=== PATIENT | female | born 1980 | race Caucasian/White ===

== ENCOUNTER 2019-09-12 16:30 | Inpatient (IN) | payer OTHER ==
[2019-09-12] MEDS ORDERED: DINOPROSTONE 10 MG VAGINAL SUPPOSITORY VG ONE (17:45)
[2019-09-12] MEDS ORDERED: PROMETHAZINE HCL 25 MG/1 ML VIAL IVPUSH ONE (17:45)
[2019-09-12] MEDS ORDERED: BUTORPHANOL TARTRATE 1 MG/ML VIAL IVPUSH ONE (17:45)
--- NOTE | 2019-09-12 17:45 | HP ---
Past Medical History - Primary Care Physician PCP:: Dov Leon - Admission Chief Complaint: 39 weeks, PROM, AMA History of Present Illness: 39 yo f G 4 p3 0 0 3 , 39 weeks , c/o rom ,clear fluid since 5 pm, no pain, no fever, cx closed 25 precent effaced , vx -3 mr, nitrazine positive , GBS negative History Source: Patient Limitations to Obtaining History: No Limitations - Past Medical History Cardiovascular: No: AFIB, Aneurysm, Aortic Insufficiency, Aortic Stenosis, CAD, CHF, Deep Vein Thrombosis, HTN, Hyperlipdemia, IA, Mitral Insufficiency, Mitral Stenosis, Murmur, Pulmonary Hypertension, Other Renal/: No: Renal Failure, Renal Inusuff, BPH, Cancer, Hematuria, Hemodialysis , Neurogenic Bladder, Renal Calculi, UTI, Other ...: 4 ...Para: 3 ...Term: 3 Heme/Onc: Yes: Anemia - Past Surgical History Hx Myomectomy: No Hx Transabdominal Cerclage: No - Smoking History Smoking history: Never smoked - Alcohol/Substance Use Hx Alcohol Use: No - Social History Usual Living Arrangement: Yes: With Spouse History of Recent Travel: No Home Medications - Allergies Allergies/Adverse Reactions: Allergies Allergy/AdvReac Type Severity Reaction Status Date / Time No Known Drug Allergies Allergy Verified 09/12/19 17:47 - Home Medications Home Medications: Ambulatory Orders Vitamins (Sjr) - 1 tab PO DAILY 09/12/19 Review of Systems - Review of Systems Constitutional: reports: No Symptoms Eyes: reports: No Symptoms HENT: reports: No Symptoms Neck: reports: No Symptoms Cardiovascular: reports: No Symptoms Respiratory: reports: No Symptoms Gastrointestinal: reports: No Symptoms Genitourinary: reports: No Symptoms Breasts: reports: No Symptoms Reported Musculoskeletal: reports: No Symptoms Integumentary: reports: No Symptoms Neurological: reports: No Symptoms Endocrine: reports: No Symptoms Psychiatric: reports: No Symptoms Physical Exam - Maternity Constitutional: Yes: Well Nourished, No Distress, Calm Eyes: Yes: WNL, Conjunctiva Clear, EOM Intact HENT: Yes: WNL, Atraumatic, Normocephalic Neck: Yes: WNL, Supple, Trachea Midline Cardiovascular: Yes: WNL, Regular Rate and Rhythm Breast(s): Yes: WNL - Abdominal Exam/OB Fundal Height: 40 Number of Fetuses: Single Presentation: Vertex Contractions: No Intensity: Unaware Monitor Mode: External Heart Rate Location: [facility] Category: I Accelerations: Non-Uniform Decelerations: None - Vaginal Exam/OB Vaginal Bleediing: No Speculum Exam: Yes Dilatation (cm): closed Effacement (%): 0 Amniotic Membrane Status: Ruptured Nitrazine Test: Positive Amniotic Fluid: Yes: Clear Presentation: Vertex/Position Station: -3 - Physical Exam Musculoskeletal: Yes: WNL Extremities: Yes: WNL Edema: LLE: Trace, RLE: Trace ...Motor Strength: WNL Psychiatric: Yes: WNL Hemorrhage Risk Assessment - Risk Factors Medium Risk Factors: Yes: None High Risk Factors: Yes: None Risk Score: 1 Risk Level: Medium Risk Problem List - Problems (1) 39 weeks gestation of Code(s): Z3A.39 - 39 WEEKS GESTATION OF (2) Premature labor with rupture of membranes in third trimester Code(s): O42.913 - PRETRM BELINDA ROM, UNSP TIME BETW RUPT AND ONST LABR, 3RD TRI Assessment/Plan admit FHM cervidil discussed , risks and ulternatives explained agreed to have cervidil
--- NOTE | 2019-09-12 17:49 | PN ---
Progress Note (short form) - Note Progress Note: cx closed , 25 ,vx -3 mr, clear , fhr cat 1 cervidil risks and benefit discusssed cervidil inserted
[2019-09-12] MEDS ORDERED: DEXTROSE 5%-LACTATED RINGERS 1,000 ML IV SCH (18:00)
[2019-09-12 18:16] VITALS: BMI 30.1
[2019-09-12 19:51] LABS: BASO % 0.3 % (0-2.0); EOS % 0.4 % (0-4.5); HEMATOCRIT 35.8 % (32.4-45.2); HEMOGLOBIN 11.6 GM/dL (10.7-15.3); LYMPH % 14.5 % (8-40); MCH 25.1 pg (25.7-33.7); MCHC 32.5 g/dl (32.0-36.0); MEAN CELL VOLUME 77.1 fl (80-96); MEAN PLT VOLUME 9.9 fl (7.5-11.1); MONO % 4.5 % (3.8-10.2); NEUT % 80.3 % (42.8-82.8); PLATELET COUNT 145 K/MM3 (134-434); RBC 4.64 M/mm3 (3.60-5.2); RDW 16.2 % (11.6-15.6); WHITE BLOOD COUNT 8.4 K/mm3 (4.0-10.0)
[2019-09-12 20:12] LABS: INR 0.92 (0.83-1.09); PROTHROMBIN TIME (PATIENT) 10.9 SEC (9.7-13.0)
[2019-09-12 20:14] LABS: ACTIVATED PTT 26.1 SECONDS (25.2-36.5); BLOOD UREA NITROGEN 10.3 mg/dL (7-18); CALCIUM 7.9 mg/dL (8.5-10.1); CREATININE 0.8 mg/dL (0.55-1.3); POTASSIUM 3.9 mmol/L (3.5-5.1)
[2019-09-12] MEDS ORDERED: ELECTROLYTE-148 SOLN 1,000 ML IV SCH (20:45)
[2019-09-12] MEDS ORDERED: NALOXONE HCL 0.4 MG/ML VIAL IVPUSH PRN (20:49)
[2019-09-12] MEDS ORDERED: FENTANYL/BUPIVACAINE/NS/PF - PCEA - 50 ML DISP.SYRIN EP ONE (20:55)
[2019-09-12] MEDS ORDERED: FENTANYL/BUPIVACAINE/NS/PF - PCEA - 50 ML DISP.SYRIN EP SCH (21:00)
[2019-09-12] MEDS ORDERED: PROMETHAZINE HCL 25 MG/1 ML VIAL ONE (21:27)
[2019-09-12] MEDS ORDERED: BUTORPHANOL TARTRATE 1 MG/ML VIAL ONE ×2 (21:27)
[2019-09-12] MEDS ORDERED: LIDOCAINE HCL 1% PRESERVATIVE FREE - 30ML VIAL ONE (23:54)
[2019-09-12] MEDS ORDERED: OXYTOCIN 20 UNITS in 0.9% NS 20 UNIT/1,000 ML INFUS.BAG IV ONE (23:55)
[2019-09-13] MEDS ORDERED: METHYLERGONOVINE MALEATE 0.2 MG/1 ML AMP IM PRN (00:31)
[2019-09-13] MEDS ORDERED: oxyCODONE HCL 5 MG TABLET PO PRN (00:31)
[2019-09-13] MEDS ORDERED: WITCH HAZEL 50% (TUCKS) 40 PAD/JAR PAD TP PRN (00:31)
[2019-09-13] MEDS ORDERED: BENZOCAINE 28 GM HEMORRHOIDAL OINTMENT TP PRN (00:31)
[2019-09-13] MEDS ORDERED: BENZOCAINE 20% 57 GM BOTTLE TP PRN (00:31)
[2019-09-13] MEDS ORDERED: BISACODYL 10 MG SUPP.RECT RC PRN (00:31)
--- NOTE | 2019-09-13 00:35 | PN ---
Progress Note (short form) - Note Progress Note: 11 pm 8 cm , nst reactive, uc q 3 min, took stadol, comfortable, -1, 90 %
--- NOTE | 2019-09-13 00:37 | PN ---
Progress Note (short form) - Note Progress Note: 11 50 pm, 9 cm, pushing soon, nst reactive, uc q 3 min,
--- NOTE | 2019-09-13 00:38 | PN ---
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
[2019-09-13] MEDS ORDERED: OXYTOCIN 20 UNITS in 0.9% NS 20 UNIT/1,000 ML INFUS.BAG IV SCH (00:45)
[2019-09-13] MEDS ORDERED: OXYTOCIN 20 UNITS in 0.9% NS 20 UNIT/1,000 ML INFUS.BAG IV ONE (02:26)
[2019-09-13] MEDS ORDERED: ACETAMINOPHEN 325 MG TABLET (FP) ONE (05:43)
[2019-09-13] MEDS ORDERED: IBUPROFEN 600 MG TABLET (FP) PO ONE (05:43)
[2019-09-13] MEDS: IBUPROFEN 600 MG TABLET (FP) PO PRN ×2 (05:51→14:35)
[2019-09-13] MEDS: ACETAMINOPHEN 325 MG TABLET (FP) PO PRN ×2 (05:52→14:35)
--- NOTE | 2019-09-13 18:46 | PN ---
Progress Note (short form) - Note Progress Note: ppd 1, no c/o . no excess vaginal bleeding CBC, BMP 09/12/19 19:10 09/12/19 19:10 Last Vital Signs Temp Pulse Resp BP Pulse Ox 97.6 F 74 18 101/60 100 09/13/19 14:15 09/13/19 14:15 09/13/19 14:15 09/13/19 14:15 09/13/19 01:30 abdomen soft, no distension, no cva uterus firm, non tender lochia mild no calf tenderness plan ambulate . cbc in am Problem List - Problems (1) 39 weeks gestation of Code(s): Z3A.39 - 39 WEEKS GESTATION OF (2) Premature labor with rupture of membranes in third trimester Code(s): O42.913 - PRETRM BELINDA ROM, UNSP TIME BETW RUPT AND ONST LABR, 3RD TRI
[2019-09-14] MEDS: ACETAMINOPHEN 325 MG TABLET (FP) PO PRN (03:25)
[2019-09-14] MEDS: IBUPROFEN 600 MG TABLET (FP) PO PRN (03:28)
--- NOTE | 2019-09-14 09:14 | DS ---
Physical Exam-LOG FEEDER Vital Signs: Vital Signs Temperature 98 F 09/13/19 22:00 Pulse Rate 73 09/13/19 22:00 Respiratory Rate 18 09/13/19 22:00 Blood Pressure 118/72 09/13/19 22:00 O2 Sat by Pulse Oximetry (%) 100 09/13/19 01:30 Constitutional: Yes: Well Nourished, No Distress, Calm Eyes: Yes: WNL HENT: Yes: WNL, Atraumatic, Normocephalic Neck: Yes: WNL, Supple, Trachea Midline Cardiovascular: Yes: WNL, Regular Rate and Rhythm Respiratory: Yes: WNL Gastrointestinal: Yes: WNL ...Rectal Exam: Yes: WNL Renal/: Yes: WNL ....Post : Yes: Uterus firm, Uterus non-tender, Slight lochia rubra Breast(s): Yes: WNL Musculoskeletal: Yes: WNL Extremities: Yes: WNL Edema: No Integumentary: Yes: WNL Neurological: Yes: WNL, Alert, Oriented ...Motor Strength: WNL Psychiatric: Yes: WNL, Alert, Oriented Labs: CBC, BMP 09/12/19 19:10 09/12/19 19:10 Delivery - Delivery Vaginal Delivery: No Problems Type of Anesthesia: Local Episiotomy/Laceration: Right Mediolateral EBL (cc): 300 Delivery, Single - Stages of Labor Date 1st Stage Initiatied: 09/12/19 Time 1st Stage Initiated: 15:30 Date 2nd Stage Initiated: 09/12/19 Time 2nd Stage Initiated: 23:55 Date of Delivery: 09/12/19 Time of Delivery: 00:09 Time Placenta Delivered: 00:11 Placenta: Yes: Spontaneous - 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 Gender: Male Weight: 7 lb 7 oz Position: Left, OA Total Hours ROM (Hrs/Mins): 8h 38m - 1 Minute Total Score: 9 5 Minutes Total Score: 9 - [place] Feeding Plan Initial Plan: Elected not to breastfeed exclusively throughout hospitalization Discharge Summary Problems reviewed: Yes Reason For Visit: LABOR Current Active Problems 39 weeks gestation of (Acute) Premature labor with rupture of membranes in third trimester (Acute) Procedures: Principal: Other Procedures: RML episiotomy Hospital Course: no complication Health Concerns: obesity Plan of Treatment: low carb diet , exercise Condition: Good - Instructions Diet, Activity, Other Instructions: regular diet , no intercourse , if pain, heavy vaginal bleeding call md follow up [facility] care 4 weeks Referrals: Dov Leon MD [Staff Physician] - Disposition: HOME - Home Medications Comprehensive Discharge Medication List: Ambulatory Orders Vitamins (Sjr) - 1 tab PO DAILY 09/12/19 Ibuprofen [Motrin -] 600 mg PO TID #21 tablet 09/13/19
[2019-09-14] MEDS ORDERED: DIPHTH,PERTUSS(ACELL),TET 0.5 ML DISP.SYRIN IM ONE (10:00)
[2019-09-14 10:01] LABS: BASO % 0.3 % (0-2.0); EOS % 1.7 % (0-4.5); HEMOGLOBIN 10.4 GM/dL (10.7-15.3); LYMPH % 14.4 % (8-40); MCH 25.3 pg (25.7-33.7); MCHC 32.6 g/dl (32.0-36.0); MEAN CELL VOLUME 77.5 fl (80-96); MEAN PLT VOLUME 9.8 fl (7.5-11.1); MONO % 3.3 % (3.8-10.2); NEUT % 80.3 % (42.8-82.8); PLATELET COUNT 134 K/MM3 (134-434); RBC 4.13 M/mm3 (3.60-5.2); RDW 16.4 % (11.6-15.6); WHITE BLOOD COUNT 8.9 K/mm3 (4.0-10.0)
[2019-09-14 10:19] VITALS: BP 105/68; PULSE 85; TEMP 97.9
[2019-09-14 10:51] LABS: POC NITRAZINE POS
[2019-09-14] MEDS ORDERED: SENNOSIDES/DOCUSATE COMBO (SENNA PLUS) TABLET (UD) PO PRN (22:00)
== END 2019-09-14 13:30 | disposition home or self-care (01) | DRG 560 ==
LOC: JDEL 16:30 → JLDR 16:31 → J3W 09-13 14:10
PROVIDERS: ADMIT Obstetrics & Gynecology; ATTEND Obstetrics & Gynecology
PROC: 0W8NXZZ Division of Female Perineum, External Approach (ICD-10-PCS; principal; 2019-09-12)
PROC: 10E0XZZ Delivery of Products of Conception, External Approach (ICD-10-PCS; 2019-09-12)
DX: O42.92 Full-term premature rupture of membranes, unspecified as to length of time between rupture and onset of labor (principal); Z3A.39 39 weeks gestation of pregnancy; Z37.0 Single live birth
CPT/HCPCS: 36415; 59409; 76000-TC-FY; 80048; 83986-QW; 85025; 85610; 85730; 86593; 86850; 86900; 86901; 90715

== ENCOUNTER 2019-10-17 04:48 | Day surgery (SDC) | payer OTHER ==
[2019-10-16 10:22] VITALS: BMI 24.4
[2019-10-17] MEDS ORDERED: BUPIVACAINE HCL/PF 0.25% (2.5MG/ML) 10 ML VIAL ONE (07:14)
--- NOTE | 2019-10-17 08:16 | HP ---
Admitting History and Physical - Admission History of Present Illness: 39yo here for sterilization Declined LARCs. History of 4 NSVDs, last Sep 2019 Limitations to Obtaining History: Language Barrier - Past Medical History ACCOUNT ASSOCIATE: No: Alzheimer's, CVA, Dementia, Migraine, Multiple Sclerosis, Peripheral Neuropathy, Parkinson's, Seizure, Syncope, TIA, Vertigo, Other Cardiovascular: No: AFIB, Aneurysm, Aortic Insufficiency, Aortic Stenosis, CAD, CHF, Deep Vein Thrombosis, HTN, Hyperlipdemia, RI, Mitral Insufficiency, Mitral Stenosis, Murmur, Pulmonary Hypertension, Other Pulmonary: No: Asthma, Bronchitis, Cancer, COPD, O2 Dependent, Pneumonia, Previously Intubated, Pulmonary Embolus, Pulmonary Fibrosis, Sleep Apnea, Other Gastrointestinal: No: Ascites, Cancer, Constipation, Crohn's Disease, Diverticulitis, Diverticulosis, Esophageal Varices, Gastritis, GERD, GI Bleed, Hemorrhoids, Hiatal Hernia, Inflamatory Bowel Disease, Irritable Bowel Disease, Pancreatitis, Peptic Ulcer Disease, Ulcerative Colitis, Other ...LMP: 10/06/19 Heme/Onc: Yes: Anemia - Smoking History Smoking history: Never smoked Have you smoked in the past 12 months: No - Alcohol/Substance Use Hx Alcohol Use: No - Social History History of Recent Travel: No Home Medications - Allergies Allergies/Adverse Reactions: Allergies Allergy/AdvReac Type Severity Reaction Status Date / Time No Known Drug Allergies Allergy Verified 10/16/19 10:22 - Home Medications Home Medications: Ambulatory Orders NK [No Known Home Medication] 10/16/19 Review of Systems - Review of Systems Constitutional: denies: No Symptoms, Chills, Diaphoresis, Fever, Lethargy, Loss of Appetite, Malaise, Night Sweats, Unintentional Wgt. Loss, Weakness, Other Cardiovascular: denies: No Symptoms, Chest Pain, Edema, Palpitations, Shortness of Breath, Other Physical Examination Vital Signs: Vital Signs Temperature 98.4 F 10/17/19 06:56 Pulse Rate 80 10/17/19 06:56 Respiratory Rate 20 10/17/19 06:56 Blood Pressure 99/57 L 10/17/19 06:56 O2 Sat by Pulse Oximetry (%) 97 10/17/19 06:57 Constitutional: Yes: Well Nourished, No Distress, Calm Eyes: Yes: WNL, Conjunctiva Clear, EOM Intact HENT: Yes: WNL, Atraumatic, Normocephalic Neck: Yes: WNL, Supple, Trachea Midline Cardiovascular: Yes: WNL, Regular Rate and Rhythm Respiratory: Yes: WNL, Regular, CTA Bilaterally Gastrointestinal: Yes: WNL, Normal Bowel Sounds Musculoskeletal: Yes: WNL Extremities: Yes: WNL Edema: No Integumentary: Yes: WNL Neurological: Yes: WNL, Alert, Oriented ...Motor Strength: WNL Psychiatric: Yes: WNL Assessment/Plan 39yo here for sterilization NPO, IVFs SCDs Bonner Risk and alternatives reviewed, decliend LARCs Consented for Laparoscopic bilateral salpingectomy, all questions answered. Proceed to OR Cece Whitlock MD
[2019-10-17] MEDS ORDERED: LIDOCAINE HCL/PF 2% SDV 5ML VIAL ONE (08:19)
[2019-10-17] MEDS ORDERED: KETOROLAC TROMETHAMINE 30 MG/1 ML VIAL ONE (08:19)
[2019-10-17] MEDS ORDERED: DESFLURANE GAS 240 ML BOTTLE IH ONE (08:19)
[2019-10-17] MEDS ORDERED: ROCURONIUM BROMIDE 50 MG/5 ML SYRINGE ONE (08:19)
[2019-10-17] MEDS ORDERED: fentaNYL CITRATE 250 MCG/5 ML VIAL ONE (08:19)
[2019-10-17] MEDS ORDERED: PROPOFOL 20 ML ONE (08:19)
[2019-10-17] MEDS ORDERED: DEXAMETHASONE SOD PHOSPHATE 4 MG/1 ML VIAL ONE (08:19)
[2019-10-17] MEDS ORDERED: MIDAZOLAM HCL 2 MG/2 ML SINGLE DOSE VIAL ONE (08:46)
[2019-10-17] MEDS ORDERED: BUPIVACAINE HCL 0.25% 125 MG/50 ML VIAL NR ONE ×2 (08:47)
[2019-10-17] MEDS ORDERED: NEOSTIGMINE METHYLSULFATE 0.5 MG/ML - 10 ML MDV ONE (09:01)
[2019-10-17] MEDS ORDERED: GLYCOPYRROLATE 0.2 MG/1 ML VIAL ONE ×2 (09:01)
[2019-10-17] MEDS ORDERED: ONDANSETRON 4 MG/2 ML VIAL IVPUSH PRN (09:17)
[2019-10-17] MEDS ORDERED: PROMETHAZINE HCL 25 MG/1 ML VIAL IVPUSH PRN (09:17)
[2019-10-17] MEDS ORDERED: oxyCODONE HCL 5 MG TABLET PO PRN (09:17)
--- NOTE | 2019-10-17 09:17 | OP ---
Operative Note - Note: Operative Date: 10/17/19 Pre-Operative Diagnosis: Desires Permanent Sterilization Operation: Laparoscopic Bilateral Salpingectomy Findings: Normal tubes and ovaries bilaterally. Normal uterus Post-Operative Diagnosis: Same as Pre-op Surgeon: Barbara Whitlock Screwmaker Automatic: Gracie Azar Anesthesia: General Specimens Removed: Bilateral Fallopian Tubes Estimated Blood Loss (mls): 30 Drains, Volume Out (mls): 100 (clear urine) Operative Report Dictated: Yes
--- NOTE | 2019-10-17 09:26 | SURG ---
Surgery Glass Vial Filler Note Glass Vial Filler: Gracie Azar PA-C Date of Service: 10/17/19 Diagnosis: Desires Permanent Sterilization Procedure: Laparoscopic Bilateral Salpingectomy I was present for the entirety of the operative procedure. For further detail, please refer to operative report. Visit type - Case Type Case Type: Scheduled - Emergency Emergency Visit: No - New patient This patient is new to me today: Yes Date on this admission: 10/17/19
[2019-10-17] MEDS ORDERED: oxyCODONE HCL 5 MG TABLET ONE (11:37)
[2019-10-17 13:01] VITALS: BP 113/69; PULSE 85; TEMP 98
--- NOTE | 2019-10-17 18:09 | OP ---
DATE OF OPERATION: 10/17/2019 PREOPERATIVE DIAGNOSIS: Desires permanent sterilization. POSTOPERATIVE DIAGNOSIS: Desires permanent sterilization. PROCEDURE: Laparoscopic bilateral salpingectomy. SURGEON: Barbara Whitlock MD. MOHS SURGEON: JUDY Campbell. ANESTHESIA: General. INTRAVENOUS FLUIDS: Per anesthesia record. ESTIMATED BLOOD LOSS: 30 mL. URINE OUTPUT: 100 mL of clear urine at the end of the procedure. FINDINGS: Normal tubes and ovaries bilaterally, normal uterus. COMPLICATIONS: None. CONDITION: Stable to recovery room. DESCRIPTION OF PROCEDURE: After appropriate consents were signed, patient was taken to the operating room. General anesthesia was administered. She was placed in the dorsal lithotomy position. The surgical field was prepped and draped in normal sterile fashion. A sterile Bonner catheter was inserted into the bladder. Timeout was performed confirming correct patient and procedure. Marcaine was injected into the umbilicus. A 5-mm incision was made with the scalpel to accommodate the 5-mm laparoscope, which was introduced under direct visualization. Correct placement was confirmed. The abdomen was insufflated by gas. The patient was placed in Trendelenburg position. A left lower quadrant 5-mm incision was made, and the port introduced under direct visualization. Attention was then paid to the right lower quadrant port, which was also introduced in a similar fashion without difficulty. The abdomen was cleared of bowel. The uterus was elevated. The fallopian tubes and ovaries were inspected bilaterally and noted to be normal. The uterus was noted to be normal as well. Using a LigaSure device, patient's left fallopian tube was ligated on the mesosalpinx until its insertion at the uterus where it was transected with a LigaSure device. Both sites were noted to be hemostatic, and the patient's left fallopian tube was removed through the left lower quadrant port. Attention was then paid to the right fallopian tube which was taken out in a similar fashion and removed from the patient's left lower quadrant port. Both sites were noted to be hemostatic on the right and reexamined again on the left to be still hemostatic. The left lower quadrant port and right lower quadrant port were removed under visualization. The abdomen was deflated of gas. The umbilical port was removed. The incision sites were closed with a 4-0 Biosyn. Appropriate bandages were placed. The Bonner catheter was removed. All sponge, lap, needle counts were correct x3. The patient was taken from the operating room to the recovery room in stable condition. She did not receive any antibiotics. MD SHERRI PAZ/[id number]
--- NOTE | 2019-10-22 18:00 | PATH ---
Surgical Pathology Report Patient Name: ELSY PENA Med. Rec. #: [id number] /Age/Gender: 1980 (Age: 39) / F Account: [id number] Location: [facility] SURGICAL Taken: 10/17/2019 Received: 10/17/2019 Reported: 10/22/2019 Physicians: Brabara Whitlock Specimen(s) Received A: RIGHT FALLOPIAN TUBE B: LEFT FALLOPIAN TUBE Clinical History Desires permanent sterilization Final Diagnosis A. RIGHT FALLOPIAN TUBE, SALPINGECTOMY: PORTION OF FALLOPIAN TUBE WITH NO SIGNIFICANT PATHOLOGIC CHANGE. COMPLETE CROSS SECTION OF FALLOPIAN TUBE LUMEN IDENTIFIED. B. LEFT FALLOPIAN TUBE, SALPINGECTOMY: PORTION OF FALLOPIAN TUBE WITH NO SIGNIFICANT PATHOLOGIC CHANGE. COMPLETE CROSS SECTION OF FALLOPIAN TUBE LUMEN IDENTIFIED. Electronically Signed Monse Torres M.D. Gross Description A. Received in formalin labeled "right fallopian tube," is a 4 cm in length fimbriated fallopian tube. The outer surface is deleon-goldstein and smooth. Sectioning reveals an unremarkable lumen. Light Industrial Supervisor sections are submitted in 2 cassettes as follows: 1-fimbria; 2-cross sections of fallopian tube. B. Received in formalin labeled "left fallopian tube," is a 3.8 cm in length fimbriated fallopian tube. The outer surface is goldstein purple and smooth. Sectioning reveals an unremarkable lumen. Light Industrial Supervisor sections are submitted in 2 cassettes as follows: 1-fimbria; 2-cross sections of fallopian tube. /10/20/2019 [facility]20/2019
== END 2019-10-17 13:05 | disposition home or self-care (01) ==
LOC: JASU-SURG 04:48
PROVIDERS: ATTEND Obstetrics & Gynecology
PROC: 0U574ZZ Destruction of Bilateral Fallopian Tubes, Percutaneous Endoscopic Approach (ICD-10-PCS; principal; 2019-10-17 08:00)
DX: Z30.2 Encounter for sterilization (principal)
CPT/HCPCS: 81025; 88302-TC; 94760